=== PATIENT | female | born 1960 | race Caucasian/White ===

== ENCOUNTER 2021-01-29 12:45 | Outpatient (CLI) | payer OTHER, SELFPAY ==
--- NOTE | ~2021-01-29 | CT_ITS ---
EXAMINATION: CT abdomen pelvis wo con EXAM DATE: 01/29/2021 13:17 INDICATION: Calcium kidney stone TECHNIQUE: Spiral CT of the abdomen and pelvis was performed without contrast. Axial, coronal and sag ittal images were reviewed. The dose-length product (DLP) for this examination was 336.10 mGy-cm. T he exposure was tailored according to patient size (auto mA exposure control), and iterative reconstr uction (ASIR) was used as additional dose reduction technique. FINDINGS: There are bilateral double-J ureteral stents in position. Some casting right calyceal calci fications in the right renal pelvic calcification. Left renal hilar calcifications appear vascular. T here is moderate left peripelvic fat stranding and mild right peripelvic fat stranding. No hydronephr osis. The uterus is not identified and has likely been surgically resected. The bladder is unremarkable. The liver, spleen, adrenal glands and pancreas are unremarkable. Gallbladder is unremarkable. No bi liary obstruction. There is no retroperitoneal or pelvic lymphadenopathy. There is mild to moderat e scattered arteriosclerotic disease. The appendix is not positively visualized. There is no pericecal inflammatory change to suggest appe ndicitis. There is moderate sigmoid colonic diverticulosis. There is no adjacent inflammatory change to suggest diverticulitis. The stomach and small bowel are unremarkable. There is expected amount o f colonic stool. No free intraperitoneal gas. The heart is normal in size. There are no pericard ial or pleural effusions. The lung bases are unremarkable. Mild chronic appearing L1 compression fr acture. There are no osteoblastic or osteolytic lesions identified. IMPRESSION: 1. Bilateral ureteral stents in position. Moderate left renal peripelvic fat stranding. 2. Right nephrolithiasis. 3. Colonic diverticulosis. Reviewed, dictated and finalized at location B. IMPRESSION: 1. Bilateral ureteral stents in position. Moderate left renal peripelvic fat s tranding. 2. Right nephrolithiasis. 3. Colonic diverticulosis.
--- NOTE | ~2021-01-29 | XR_ITS ---
EXAMINATION: XR abdomen/kub 1V EXAM DATE: 01/29/2021 13:15 INDICATION: Calcium kidney stone F/U. TECHNIQUE: Frontal projection(s) of the abdomen for interpretation. There is no prior study for richard stewart. FINDINGS: Bilateral double-J ureteral stents. Right nephrolithiasis identified, indicated. Calcificat ions in the pelvis are believed to be phleboliths. Mild to moderate lumbar levoscoliosis. Nonobstruct zuhair bowel gas pattern. IMPRESSION: 1. Right nephrolithiasis. 2. Bilateral ureteral stents in position. Reviewed, dictated and finalized at location B.
== END 2021-01-29 12:46 | disposition home or self-care (01) ==
LOC: ANHIMG 12:49
PROVIDERS: Visit Provider Urology
DX: N20.0 Calculus of kidney (principal); K57.30 Diverticulosis of large intestine without perforation or abscess without bleeding
CPT/HCPCS: 74018; 74176

== ENCOUNTER 2021-03-04 13:14 | Outpatient (CLI) | payer OTHER, SELFPAY ==
--- NOTE | ~2021-03-04 | XR_ITS ---
EXAMINATION: XR abdomen/kub 1V EXAM DATE: 03/04/2021 13:43 INDICATION: Calcium Kidney Stone, 6 WK F/U. TECHNIQUE: Frontal projection of the upper abdomen, frontal projection lower abdomen/pelvis for inter pretation. Comparison is made to prior examination from 01/30/2020. FINDINGS: Right-sided double-J ureteral stent in position. Previously seen left ureteral stent has b een removed. Scattered abdominal and pelvic calcifications, some of which overlie the renal contours. Moderate lower lumbar spondylosis and mild levoscoliosis. Moderate amount of colonic stool obscuring renal contours. Nonobstructive bowel gas pattern.. IMPRESSION: Right ureteral stent in position. Reviewed, dictated and finalized at location B.
== END 2021-03-04 13:15 | disposition home or self-care (01) ==
LOC: ANHIMG 13:24
PROVIDERS: PCP Nurse Practitioner Family; Visit Provider Urology
DX: N20.0 Calculus of kidney (principal)
CPT/HCPCS: 74018